=== PATIENT | female | born 1980 | race Asian ===

== ENCOUNTER 2018-04-22 01:14 | Emergency (ER) | payer BC, SELFPAY ==
[2018-04-22 01:16] VITALS: BP 121/80; PULSE 67; RESP 16; TEMP 36.8; O2SAT 98; BMI 23.7
--- NOTE | 2018-04-22 01:32 | ED.VISSUMM ---
- ER Visit Summary Date of Service: 04/22/18 Chief Complaint: Spider bite History of Present Illness: The patient is a 37 F with a spider bite 2 days ago. She has a localized reaction but no fever chills or systemic complaints. Physical Examination: There is a 2 cm localized reaction on her right arm region. No edema, no lymphangitic streaking, no cellulitis. Patient will be discharged with reassurance Impression: Spider bite This note was generated with [employer] dictation software. It may contain incorrect words, spelling, and punctuation that were not noted in review of the chart prior to signing ED Disposition - Plan for ED Patient: Disposition: Home or Assisted Living Chief Complaint: Bite Instructions: ED Bite Spider Non Poisonous Referrals: Care Physician,No Primary [Primary Care Provider] - 3-5 Days
== END 2018-04-22 01:43 | disposition home or self-care (01) ==
LOC: ED 01:41
PROVIDERS: Emergency Provider Emergency Medicine
DX: T63.301A Toxic effect of unspecified spider venom, accidental (unintentional), initial encounter (principal); L08.9 Local infection of the skin and subcutaneous tissue, unspecified; Y92.89 Other specified places as the place of occurrence of the external cause
CPT/HCPCS: 99282

== ENCOUNTER 2022-02-15 22:48 | Emergency (ER) | payer OTHER, SELFPAY ==
[2022-02-15 22:50] VITALS: BP 128/83; PULSE 75; RESP 16; TEMP 36.3; O2SAT 98; BMI 23.9
--- NOTE | 2022-02-15 23:18 | EX.ED.DYSGE1 ---
HPI History of Present Illness Chief Complaint: Foreign Body Informant: patient and spouse/S.O. Narrative Narrative: Here with mother concern for foreign body sensation right throat after eating fish for which she thinks she swallowed a fishbone. Denies dyspnea or cough. Feels like someone stuck there. Has drank a little bit of fluids and it stayed down. No past medical history. No similar events in the past. No allergies. Prior similar symptoms: No PFSH PFSH Medical History Cholecystectomy planned Allergy/AdvReac Type Severity Reaction Status Date / Time No Known Allergies Allergy Verified 04/22/18 01:15 Social History Smoking Status: Never smoker ROS ROS ED Constitutional Constitutional ED: Denies chills, fever(s) or sweats Eyes Eyes: Denies change in vision ENT ENT ED: Reports other Details: Foreign body sensation in throat. ; Denies dysphagia or sore throat Cardiovascular Cardiovascular: Denies chest pain, leg edema, palpitations or racing heartbeat Respiratory/Chest Respiratory/Chest: Denies cough, dyspnea or dyspnea on exertion Gastrointestinal Gastrointestinal: Denies abdominal pain, diarrhea, nausea or vomiting Genitourinary Genitourinary ED: Denies dysuria, hematuria or urinary frequency Musculoskeletal Musculoskeletal: Denies back pain, extremity pain or neck pain Integumentary Denies rash or wounds Neurologic Neurologic: Denies headache(s), paresthesias or weakness EXAM Physical Exam Const Vital Signs: 02/15/22 22:50 02/15/22 22:53 Temperature 97.4 F L Temperature Source Temporal Pulse Rate 75 Respiratory Rate 16 Respiratory Effort Normal Blood Pressure 128/83 H Blood Pressure Mean 98 Pulse Ox 98 Oxygen Delivery Method Room Air Positive well nourished and well developed General Appearance ED: well developed and NAD HEENT Reports moist mucous membranes HEENT Narrative: No gross clear foreign bodies noted. Airway patent. No stridor. normocephalic and atraumatic Eyes PERRL, EOMs intact bilaterally and conjunctivae normal General Eye ED: Yes normal appearance of both eyes Neck no lymphadenopathy and supple General: Negative for tenderness Chest Wall Chest: Negative for tenderness Resp normal respiratory effort and normal air movement Effort and Inspection: symmetric chest movement; Negative for respiratory distress Cardio regular rate, regular rhythm and no murmurs Peripheral Pulses: pulses 2+ throughout GI normal to inspection, nondistended, normoactive bowel sounds and non-tender Palpation: Negative for guarding or rebound tenderness present Back/Spine no CVA tenderness and no thoracic nor lumbar tenderness Extremity normal to inspection General Extremety ED: Negative for edema or tenderness General Extremity: Negative for edema Neuro oriented x3 and no sensory deficits noted Sensorium / Orientation: awake and alert Skin no rashes or lesions noted and no wounds MDM MDM MDM Narrative Medical decision making narrative: Patient foreign body sensation after accidental fishbone. No airway compromise. She was given a carbonated drink states irritation still there viscous lidocaine did have some improvement. Nasal laryngoscope positive irritation upper esophagus there is no gross foreign bodies. Patient is reassured. Offered viscous lidocaine prescription however declined. She will do soft foods and cold liquids as needed. She is given follow-up with GI as needed. All questions were answered. Procedure note: Verbal consent. Nasolaryngoscope. Viscous lidocaine 2% jelly placed in the nasal airway along with the scope. 3.8 [place] nasal laryngoscope advanced in the left nare, evaluation of the epiglottis and the vocal cords are noted, posteriorly this noted irritation the posterior upper esophagus with 3 punctures. There is no active bleeding or ulcerations, there is no foreign body noted. Laryngoscope was removed. Patient tolerated this well. Discharge Plan Triage Chief Complaint: Foreign Body ED Provider: Luis Almeida Dx/Rx/DC Orders Clinical Impression: Foreign body sensation in throat, H/O swallowed foreign body Instructions: ED Swallowed Foreign Body (Adult) Primary Care Provider: Shelia Rodas Referrals: Shelia Rodas DO [Primary Care Provider] - Bakari Catalan DO [STAFF PHYSICIAN] - 1-2 Weeks Activity Restrictions/Additional Instructions: Nasolaryngoscope, small punctures irritation noted upper esophagus. There is no active bleeding. No foreign body noted. Soft foods and follow-up with GI as needed. Disposition Disposition: Home, Self Care Discharge Date/Time: 02/15/22 23:38
== END 2022-02-15 23:38 | disposition home or self-care (01) ==
PROVIDERS: Emergency Provider Emergency Medicine; PCP Internal Medicine; Visit Provider Emergency Medicine
DX: T17.208A Unspecified foreign body in pharynx causing other injury, initial encounter (principal); X58.XXXA Exposure to other specified factors, initial encounter
CPT/HCPCS: 99283